=== PATIENT | female | born 1980 | race Caucasian/White ===

== ENCOUNTER 2016-06-21 18:09 | Emergency (ER) | payer OTHER, SELFPAY ==
[2016-06-21] MEDS ORDERED: Lidocaine Viscous Sol 2% 15 ml UD Cup ONE (18:42)
[2016-06-21] MEDS ORDERED: Ondansetron HCl/PF 4 MG/2 ML Vial ONE (18:42)
[2016-06-21] MEDS ORDERED: Milk Of Magnesia 30 ML UDCUP ONE (18:42)
[2016-06-21 19:23] LABS: Bilirubin Negative (Negative); Blood, Urine Large (Negative); Clarity Clear (Clear); Glucose, Urine (Dipstick) Negative (Negative); Leukocyte Trace (Negative); Nitrite Negative (Negative); Protein, Urine (Dipstick) Negative (Neg-Trace); Specific Gravity, Urine 1.015 (1.005-1.030); Urobilinogen 0.2 mg/dL (0.2-1.0)
[2016-06-21 19:24] LABS: #Basophils 0.1 thou/uL (0.0-0.2); #Lymphocytes 2.3 thou/uL (1.20-3.40); #Monocytes 0.6 thou/uL (0.11-0.59); #Neutrophils 10.3 thou/uL (1.40-6.50); %Basophils 0.5 % (0.0-1.0); %Eosinophils 0.1 % (0.0-10.0); %Lymphocytes 17.5 % (21.0-51.0); %Monocytes 4.2 % (0.0-10.0); %Neutrophils 77.7 % (42.0-75.0); Hemoglobin 16.7 g/dL (12.0-16.0); Mean Corpuscular HGB CONC 32.1 g/dL (32.0-36.0); Mean Corpuscular Hemoglobin 28.1 pg (27.0-31.0); Mean Corpuscular Volume 87.5 fl (81.0-99.0); Mean Platelet Volume 9.1 fL (7.4-10.4); Platelet Count 350 thou/uL (130-400); RBC Distribution Width 13.3 % (11.5-14.5); Red Blood Cell (RBC) Count 5.97 mill/uL (4.20-5.40); White Blood Cell (WBC) Count 13.3 thou/uL (4.8-10.8)
[2016-06-21 19:29] LABS: Specific Gravity 1.015 (1.002-1.036)
[2016-06-21 19:30] LABS: Pregu Control Bar Appear? YES (CONTROL BAR); RBC/HPF 21-50 HPF (0-3); Squamous Epithelial 0-3 HPF (0-3); WBC/HPF 0-3 HPF (0-3)
[2016-06-21 19:31] LABS: Bacteria/HPF None Seen HPF (None Seen)
[2016-06-21 19:39] LABS: ALT (SGPT) 11 U/L (0-55); AST (SGOT) 14 U/L (5-34); Albumin 4.8 g/dL (3.5-5.0); Alkaline Phosphatase 92 U/L (40-150); Anion Gap 16 mmol/L (10-20); BUN (Urea Nitrogen) 7 mg/dL (7.0-18.7); Bilirubin, Total 0.6 mg/dL (0.2-1.2); Calc. Creatinine Clearance 0 mL/min (70-130); Calcium 10.3 mg/dL (7.8-10.44); Carbon Dioxide 25 mmol/L (22-29); Chloride 100 mmol/L (98-107); Estimated GFR-MDRD 88; Globulin 3.3 g/dL (2.4-3.5); Glucose 103 mg/dL (70-105); Lipase 12 U/L (8-78); Potassium 4.1 mmol/L (3.5-5.1); Protein, Total 8.1 g/dL (6.0-8.3); Sodium 137 mmol/L (136-145)
== END 2016-06-21 20:04 | disposition home or self-care (01) ==
LOC: BURERS 18:09
DX: K29.00 Acute gastritis without bleeding (principal); I10 Essential (primary) hypertension; F17.210 Nicotine dependence, cigarettes, uncomplicated
CPT/HCPCS: 36415; 80053; 81003; 81015; 81025; 83605; 83690; 85025; 96361; 96374; 96375; J0360; J2405

== ENCOUNTER 2016-12-16 18:13 | Emergency (ER) | payer SELFPAY ==
[2016-12-16] MEDS ORDERED: Amoxicillin/Potassium Clav 875 MG TAB ONE (19:10)
--- NOTE | 2016-12-16 22:04 | RAD ---
CHEST TWO VIEWS: Date: 12-16-16 Comparison: 08-11-15 FINDINGS: Lungs may be slightly hyperexpanded but they are clear. No effusions, lobar infiltrates or other acu te changes were seen to explain the patient's fever. The heart size is normal. The trachea is midlin e. IMPRESSION: No acute thoracic finding. POS: HOME
== END 2016-12-16 19:19 | disposition home or self-care (01) ==
LOC: BURERS 18:13
DX: J69.0 Pneumonitis due to inhalation of food and vomit (principal); I10 Essential (primary) hypertension; F17.210 Nicotine dependence, cigarettes, uncomplicated
CPT/HCPCS: 71020; 94760

== ENCOUNTER 2019-01-31 13:39 | Emergency (ER) | payer OTHER, SELFPAY ==
[2019-01-31] MEDS ORDERED: Ketorolac Tromethamine 60 MG/2 ML VIAL ONE (13:59)
[2019-01-31] MEDS ORDERED: Acetaminophen 500 MG TAB ONE (13:59)
--- NOTE | 2019-01-31 17:43 | CT ---
CT BRAIN WITHOUT CONTRAST: 01/31/2019 FINDINGS: The ventricles are normal in size with no shift. No intracranial bleeding, mass or sign of stroke is found. There is no extraaxial hematoma. The calvarium appears intact. The visible paranasal sinuses a nd mastoid air cells are clear. IMPRESSION: No acute intracranial finding. POS: HOME
--- NOTE | 2019-01-31 17:44 | CT ---
CT CERVICAL SPINE: 01/31/2019 TECHNIQUE: Axial slices were acquired followed by coronal and sagittal reconstructions. FINDINGS: No fracture, dislocation or soft tissue swelling is seen. The C1 to dens distance is normal. 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 No central canal or foraminal stenos is is seen at any level. The disk spaces appear normal. The surrounding soft tissues are unremarkable . IMPRESSION: Except for perhaps minimal straightening of the cervical spine the exam is unremarkable. POS: HOME
== END 2019-01-31 14:29 | disposition home or self-care (01) ==
LOC: BURERS 13:39
DX: S06.0X0A Concussion without loss of consciousness, initial encounter (principal); I10 Essential (primary) hypertension; F31.9 Bipolar disorder, unspecified; F17.210 Nicotine dependence, cigarettes, uncomplicated; Z79.899 Other long term (current) drug therapy; W01.198A Fall on same level from slipping, tripping and stumbling with subsequent striking against other object, initial encounter
CPT/HCPCS: 70450; 72125; 96372; J1885

== ENCOUNTER 2019-04-21 19:14 | Emergency (ER) | payer OTHER ==
[2019-04-21] MEDS ORDERED: Benzonatate 100 MG CAP ONE (20:06)
[2019-04-21] MEDS ORDERED: Amoxicillin 125 mg/5 ml Oral Suspension ONE (20:06)
[2019-04-21] MEDS ORDERED: Dexamethasone 4 MG TAB ONE (20:06)
== END 2019-04-21 20:18 | disposition home or self-care (01) ==
LOC: BURERS 19:14
DX: J20.9 Acute bronchitis, unspecified (principal); F17.210 Nicotine dependence, cigarettes, uncomplicated; F31.9 Bipolar disorder, unspecified; I10 Essential (primary) hypertension
CPT/HCPCS: 87804; 94640; J7620; J8540

== ENCOUNTER 2019-07-09 03:16 | Emergency (ER) | payer OTHER ==
[2019-07-09] MEDS ORDERED: Ondansetron PF 4 MG/2 ML Vial ONE (03:57)
[2019-07-09] MEDS ORDERED: Ketorolac Tromethamine 30 MG/ML VIAL ONE (03:57)
[2019-07-09 04:23] LABS: #Basophils 0.1 thou/uL (0.0-0.2); #Monocytes 0.8 thou/uL (0.11-0.59); %Basophils 0.8 % (0.0-1.0); %Eosinophils 0.4 % (0.0-10.0); %Monocytes 7.6 % (0.0-10.0); %Neutrophils 71.2 % (42.0-75.0); Hemoglobin 12.2 g/dL (12.0-16.0); Mean Corpuscular HGB CONC 32.3 g/dL (32.0-36.0); Mean Corpuscular Hemoglobin 28.3 pg (27.0-31.0); Mean Corpuscular Volume 87.6 fL (78.0-98.0); Platelet Count 281 thou/uL (130-400); RBC Distribution Width 13.6 % (11.5-14.5); Red Blood Cell (RBC) Count 4.31 mill/uL (4.20-5.40); White Blood Cell (WBC) Count 9.9 thou/uL (4.8-10.8)
[2019-07-09 04:32] LABS: ALT (SGPT) 18 U/L (8-55); AST (SGOT) 18 U/L (5-34); Albumin 4.2 g/dL (3.5-5.0); Alkaline Phosphatase 67 U/L (40-110); Anion Gap 17 mmol/L (10-20); BUN (Urea Nitrogen) 13 mg/dL (7.0-18.7); Bilirubin, Total 0.3 mg/dL (0.2-1.2); Calc. Creatinine Clearance 0 mL/min (70-130); Calcium 9.2 mg/dL (7.8-10.44); Carbon Dioxide 21 mmol/L (22-29); Chloride 103 mmol/L (98-107); Estimated GFR-MDRD 88; Globulin 2.8 g/dL (2.4-3.5); Glucose 82 mg/dL (70-105); Potassium 4.1 mmol/L (3.5-5.1); Sodium 137 mmol/L (136-145)
[2019-07-09 04:52] LABS: Lipase Less than 4 U/L (8-78)
--- NOTE | 2019-07-09 08:25 | CT ---
PRELIMINARY REPORT/[facility]/EMERGENCY AFTER HOURS PROCEDURE: EXAM: CT Abdomen and Pelvis with Intravenous Contrast CLINICAL HISTORY: LT SIDED ABD PAIN SINCE FRIDAY TECHNIQUE: Axial computed tomography images of the abdomen and pelvis with intravenous contrast. CONTRAST: With; ISO 370, 95mL COMPARISON: None provided. FINDINGS: LUNG BASES: Linear left base atelectasis. LIVER: Enlarged measuring 19.6 cm in length. GALLBLADDER AND BILE DUCTS: Unremarkable. No calcified stone. No ductal dilation. PANCREAS: Unremarkable. SPLEEN: Unremarkable. ADRENAL GLANDS: Unremarkable. KIDNEYS, URETERS, AND BLADDER: Unremarkable. No hydronephrosis or nephrolithiasis. No ureteral or zara dder calculi. STOMACH AND BOWEL: No obstruction. No wall thickening. No CT evidence of colitis or acute diverticuli tis. APPENDIX: Appendix is normal. PERITONEUM: No free fluid. No free air. LYMPH NODES: No lymphadenopathy. REPRODUCTIVE: Uterus and left adnexa are grossly normal. 1.9 cm right ovarian cyst. VASCULATURE: No aortic aneurysm. BONES: No fracture or suspicious osseous abnormality. ABDOMINAL WALL AND SOFT TISSUES: Small fat containing ventral hernia to the right of the umbilicus. IMPRESSION: Hepatomegaly. 1.9 cm right ovarian cyst. ELECTRONICALLY SIGNED BY: Kristie Feliz MD Jul 09, 2019 5:12:55 AM CDT This report is intended for review by the ordering physician only, in accordance of law. If you recei ve this report in error, please call [facility] at [phone]. FINAL REPORT CT ABDOMEN AND PELVIS WITH CONTRAST: Date: 07/09/[address] of the abdomen and pelvis was done for evaluation of left-sided pain. Scans were done after giving IV contrast. Coronal and sagittal reconstructions were done. The lung bases are clear, except for some minimal atelectasis. There are no effusions. The liver is m ildly generous in size, but internally appears normal. The spleen, pancreas, gallbladder, adrenal gla nds, kidneys, and abdominal aorta were unremarkable. The bowel shows no definite thickening, dilation, or periintestinal inflammatory change. Some fluid i s present in the stomach. The thickness of the gastric wall seems fairly uniform, and a little more p rominent than normal, the stomach is not distended, so little could be made of it. CT of the pelvis shows a 2.4 cm right ovarian cyst. No other pelvic masses, inflammatory changes, or fluid collections were appreciated. IMPRESSION: 1. Mild prominence of hepatic size. 2. 2.4 cm right ovarian cyst. Report in agreement with preliminary reading by [facility]. POS: HOME
[2019-07-09] MEDS ORDERED: Iopamidol 370 76% 100 ML VIAL ONE (13:56)
== END 2019-07-09 05:45 | disposition home or self-care (01) ==
LOC: BURERS 03:16
DX: R10.12 Left upper quadrant pain (principal); R11.2 Nausea with vomiting, unspecified; I10 Essential (primary) hypertension; F32.9 Major depressive disorder, single episode, unspecified; F17.210 Nicotine dependence, cigarettes, uncomplicated; Z87.442 Personal history of urinary calculi; Z79.899 Other long term (current) drug therapy
CPT/HCPCS: 74177; 80053; 83690; 85025; 96361; 96374; 96375; J1885; J2405; Q9967

== ENCOUNTER 2022-05-24 13:34 | Emergency (ER) | payer OTHER, SELFPAY ==
[2022-05-24] MEDS ORDERED: Ketorolac Tromethamine 30 MG/ML VIAL ONE (14:28)
== END 2022-05-24 14:38 | disposition home or self-care (01) ==
LOC: BURERS 13:34
DX: B34.9 Viral infection, unspecified (principal); F17.210 Nicotine dependence, cigarettes, uncomplicated; I10 Essential (primary) hypertension; Z79.899 Other long term (current) drug therapy
CPT/HCPCS: 96372; 99283; J1885

== ENCOUNTER 2024-01-22 15:55 | Emergency (ER) | payer SELFPAY | END 2024-01-22 16:19 | disposition home or self-care (01) | LOC: BURERS 15:55 | DX: J39.9 Disease of upper respiratory tract, unspecified (principal); I10 Essential (primary) hypertension; F17.210 Nicotine dependence, cigarettes, uncomplicated | CPT/HCPCS: 99283 ==

== ENCOUNTER 2024-04-01 19:56 | Emergency (ER) | payer SELFPAY ==
[2024-04-01] MEDS ORDERED: Acetaminophen 500 MG TAB ONE (20:14)
== END 2024-04-01 21:45 | disposition home or self-care (01) ==
LOC: BURERS 19:56
DX: S06.0X0A Concussion without loss of consciousness, initial encounter (principal); S00.03XA Contusion of scalp, initial encounter; F17.210 Nicotine dependence, cigarettes, uncomplicated; I10 Essential (primary) hypertension; W19.XXXA Unspecified fall, initial encounter
CPT/HCPCS: 70450; 72125

== ENCOUNTER 2025-01-27 17:00 | Emergency (ER) | payer OTHER, SELFPAY ==
[2025-01-27 18:15] LABS: INR-International Normal Ratio 1.0; Prothrombin Time 13.2 sec (12.0-14.7)
[2025-01-27 18:19] LABS: Hematocrit 37.3 % (36.0-47.0); Hemoglobin 13.1 g/dL (12.0-16.0); Mean Corpuscular Hemoglobin 29.2 pg (27.0-31.0); Mean Corpuscular Volume 83.0 fl (78.0-98.0); Platelet Count 219 10x3/uL (130-400); Red Blood Cell (RBC) Count 4.49 mill/uL (4.20-5.40); White Blood Cell (WBC) Count 6.6 10x3/uL (4.8-10.8)
[2025-01-27 18:23] LABS: ALT (SGPT) 22 U/L (Less than 34); AST (SGOT) 30 U/L (11-34); Albumin 3.7 g/dL (3.1-4.5); Alkaline Phosphatase 91 U/L (40-110); Anion Gap 16 mmol/L (10-20); BUN (Urea Nitrogen) 15 mg/dL (7.0-18.7); Bilirubin, Total 0.4 mg/dL (0.3-1.2); Calc. Creatinine Clearance 0 mL/min (70-130); Calcium 8.7 mg/dL (7.8-10.44); Carbon Dioxide 29 mmol/L (22-29); Chloride 101 mmol/L (98-107); Globulin 2.6 g/dL (2.4-3.5); Glucose 76 mg/dL (70-105); Potassium 4.1 mmol/L (3.5-5.1); Sodium 142 mmol/L (136-145)
[2025-01-27 18:44] LABS: MDiff Complete? YES
[2025-01-27] MEDS ORDERED: HYDROcodone/Acetaminophen 5/325 mg Tablet ONE (19:18)
== END 2025-01-27 19:45 | disposition home or self-care (01) ==
LOC: BURERS 17:00
DX: S22.41XA Multiple fractures of ribs, right side, initial encounter for closed fracture (principal); I10 Essential (primary) hypertension; F17.210 Nicotine dependence, cigarettes, uncomplicated; Z79.899 Other long term (current) drug therapy; W19.XXXA Unspecified fall, initial encounter; Y92.000 Kitchen of unspecified non-institutional (private) residence as the place of occurrence of the external cause
CPT/HCPCS: 71260; 74177; 80053; 85025; 85610; 96374; J2270